=== PATIENT | female | born 1980 | race Caucasian/White ===

== ENCOUNTER → 2024-01-05 08:14 | Outpatient (CLI) | payer OTHER, MEDICAID, SELFPAY ==
--- NOTE | 2024-01-05 08:19 | DI.MG.S_ITS ---
BILATERAL DIGITAL SCREENING MAMMOGRAM 3D/2D WITH CAD: 01/05/2024 CLINICAL: Routine screening. Family history of breast cancer. Baseline exam. No prior exams were available for comparison. Both breasts are heterogeneously dense, which may obscure small masses (category c / 51-75% glandular tissue). Current study was also evaluated with a Computer Aided Detection (CAD) system. There is an asymmetry in the right breast axillary tail region seen on the mediolateral oblique view only. No other significant masses, calcifications, or other findings are seen in either breast. IMPRESSION: INCOMPLETE: NEEDS ADDITIONAL IMAGING EVALUATION Right breast asymmetry in the axillary tail. Finding may be an artifact. A diagnostic mammogram with possible ultrasound is recommended. Based on the Tyrer Cuzick model (a risk assessment model) the patient's lifetime risk is 19.6% and her 10 year risk is 5.8%. According to the ACR, ACS, and NCCN guidelines, an annual breast MRI exam along with mammogram is recommended if the patient's lifetime risk is 20% or greater. This exam was interpreted at Station ID: [id number]. NOTE: For mammograms, a report in lay terms will be sent to the patient. Approximately 15% of breast malignancies will not be visualized mammographically. In the management of a palpable breast mass, a negative mammogram must not discourage biopsy of a clinically suspicious lesion. Electronically Signed By: Mercedes Johnson M.D., Ph.D. eb/:01/05/2024 11:05:04 letter sent: Additional Imaging Needed ACR BI-RADS Category 0: Incomplete 3340F
[2024-01-05 10:41] LABS: Add Manual Diff / Slide Review NO; Basophils Absolute Auto 0 /uL (0-100); Basophils Percent Auto 0.3 % (0-2); Eosinophils Absolute Auto 300 /uL (0-450); Eosinophils Percent Auto 2.4 % (2-4); Hematocrit 39.7 % (36-46); Hemoglobin 13.2 g/dL (12.0-16.0); Lymphocytes Absolute Auto 2300 /uL (1100-4500); Lymphocytes Percent Auto 22.3 % (25-40); Mean Corpuscular HGB Conc 33.2 % (30-36); Mean Corpuscular Hemoglobin 26.9 PG (26-34); Mean Corpuscular Volume 81.1 fL (80-100); Monocytes Absolute Auto 400 /uL (0-900); Monocytes Percent Auto 4.3 % (3-14); Neutrophils Absolute Auto 7400 /uL (1500-7000); Neutrophils Percent Auto 70.7 % (50-75); Platelet Count 460 X10^3/uL (150-400); Red Blood Cell Count 4.89 X10^6/uL (4.0-5.2); Red Cell Distribution Width 16.5 % (11.6-14.8); White Blood Cell Count 10.5 X10^3/uL (4.5-11.0)
[2024-01-05 10:48] LABS: Hemoglobin A1C% w Est Avg Glu 8.3 % (4.0-6.0)
[2024-01-05 10:50] LABS: UR Morphine/Opiate cutoff 300 Negative (Negative); Ur Creatinine Normal (Normal); Ur Specific Gravity Normal (Normal); Urine Amphetamines Negative (Negative); Urine Barbiturates Negative (Negative); Urine Benzodiazepines Negative (Negative); Urine Cocaine Negative (Negative); Urine MDMA Negative (Negative); Urine Methadone Negative (Negative); Urine Methamphetamines Negative (Negative); Urine Oxycodone Negative (Negative); Urine Phencyclidine Negative (Negative); Urine Tetrahydrocannabinol Positive (Negative); Urine Tricyclic Antidepressant Negative (Negative); Urine pH Normal (Normal)
[2024-01-05 11:25] LABS: Alanine Aminotransferase 21 IU/L (<35); Albumin 3.8 g/dL (3.5-5.0); Albumin Globulin Ratio 1.2 (1.0-2.8); Alkaline Phosphatase 86 U/L (38-126); Aspartate Aminotransferase 20 IU/L (14-36); BUN Creatinine Ratio 13.2 (6-22); Bilirubin Total 0.5 mg/dL (0.2-1.3); Blood Urea Nitrogen 9 mg/dL (7-17); Calcium 9.1 mg/dL (8.4-10.2); Carbon Dioxide 21 mmol/L (22-32); Chloride 109 mmol/L (98-107); Cholesterol 197 mg/dL (140-199); Estimated Glomerular Filt Rate > 60 mL/min (>60); Globulin 3.3 g/dL (1.7-4.1); Glucose 283 mg/dL (70-100); HDL Cholesterol 36 mg/dL (40-60); HEMOLYSIS < 15 (0-50); LDL Cholesterol Calculated 114 mg/dL (<100); Potassium 4.5 mmol/L (3.4-5.1); Sodium 139 mmol/L (137-145); Total Protein 7.1 g/dL (6.3-8.2); Triglycerides 236 mg/dL (35-150)
[2024-01-05 11:49] LABS: TSH w/ Reflex to FT4 1.81 uIU/mL (0.47-4.68)
[2024-01-06 02:52] LABS: Hepatitis B Core AB w/Reflex Negative (Negative)
[2024-01-06 16:49] LABS: HIV 1 & 2 Ab/Ag 4th Gen Combo NEGATIVE (NEGATIVE); Hep C Virus Ab w/Reflex Quant NEGATIVE s/c (NEGATIVE)
== END ==
LOC: MAMMO 08:17
PROVIDERS: PCP Family Medicine; Referring Provider Family Medicine; Visit Provider Family Medicine
DX: Z12.31 Encounter for screening mammogram for malignant neoplasm of breast (principal); Z80.3 Family history of malignant neoplasm of breast; R92.333 Mammographic heterogeneous density, bilateral breasts; G43.909 Migraine, unspecified, not intractable, without status migrainosus; G40.909 Epilepsy, unspecified, not intractable, without status epilepticus; E66.01 Morbid (severe) obesity due to excess calories; Z68.43 Body mass index [BMI] 50.0-59.9, adult; Z96.89 Presence of other specified functional implants; Z13.220 Encounter for screening for lipoid disorders; Z13.1 Encounter for screening for diabetes mellitus; Z78.9 Other specified health status; Z76.89 Persons encountering health services in other specified circumstances
CPT/HCPCS: 77063; 77067; 80053; 80061; 80305; 83036; 84443; 85025; 86480; 86704; 86803; 87389

== ENCOUNTER → 2024-02-01 09:21 | Outpatient (CLI) | payer OTHER, MEDICAID, SELFPAY ==
--- NOTE | 2024-02-01 09:23 | DI.MG.S_ITS ---
UNILATERAL RIGHT DIGITAL DIAGNOSTIC MAMMOGRAM 3D/2D WITH ADDITIONAL VIEWS: 02/01/2024 CLINICAL: Additional evaluation requested from prior study. Comparison is made to exam dated: 01/05/2024 mammogram - [facility]. There are scattered areas of fibroglandular density in the right breast (category b / 25%-50% glandular tissue). There is an asymmetry in the right breast posterior depth superior region seen on the mediolateral oblique view only. This is less prominent and decreased in size. Patient reports prior skin inflammation in this area and taking a course of antibiotics since the prior screening exam. No other significant masses or calcifications are seen in the breast. IMPRESSION: BENIGN The asymmetry in the right breast most likely is a skin lesion and is benign. Recommend clinical follow up. There is no mammographic evidence of malignancy. Return to annual mammogram screening schedule is recommended. Based on the Tyrer Cuzick model (a risk assessment model) the patient's lifetime risk is 14.1% and her 10 year risk is 4.0%. According to the ACR, ACS, and NCCN guidelines, an annual breast MRI exam along with mammogram is recommended if the patient's lifetime risk is 20% or greater. This exam was interpreted at Station ID: [id number]. NOTE: For mammograms, a report in lay terms will be sent to the patient. Approximately 15% of breast malignancies will not be visualized mammographically. In the management of a palpable breast mass, a negative mammogram must not discourage biopsy of a clinically suspicious lesion. Electronically Signed By: Guillaume Kauffman M.D. ar/:02/01/2024 14:32:00 letter sent: Clinical Evaluation ACR BI-RADS Category 2: Benign Finding(s) 3342F
== END ==
PROVIDERS: PCP Family Medicine; Referring Provider Family Medicine; Visit Provider Family Medicine
DX: R92.8 Other abnormal and inconclusive findings on diagnostic imaging of breast (principal); N64.89 Other specified disorders of breast; R92.321 Mammographic fibroglandular density, right breast
CPT/HCPCS: 77065; G0279

== ENCOUNTER 2024-04-06 16:25 | Emergency (ER) | payer OTHER, MEDICAID, SELFPAY ==
[2024-04-06 16:35] VITALS: BP 175/91; PULSE 78; RESP 18; TEMP 37.2; O2SAT 100; BMI 50.7
--- NOTE | 2024-04-06 16:59 | DI.CT.S_ITS ---
PROCEDURE: CT HEAD/BRAIN WO CON INDICATIONS: Right-sided headache TECHNIQUE: Noncontrast 4.5 mm thick angled axial sections acquired from the foramen magnum to the vertex, with coronal and sagittal reformats. For radiation dose reduction, the following was used: automated exposure control, adjustment of mA and/or kV according to patient size. COMPARISON: None. FINDINGS: Image quality: Diagnostic. CSF spaces: Right frontal approach ventricular drainage catheter is seen. Basal cisterns are patent. No extra-axial fluid collections. Ventricles are normal in size and shape. Brain: No midline shift. No intracranial masses or hemorrhage. Soto-white matter interface is normal. Skull and face: Calvarium and visualized facial bones are intact, without suspicious lesions. Sinuses: Visualized sinuses and mastoids are clear. IMPRESSION: 1. No acute intracranial abnormality. 2. Right frontal approach ventricular drainage catheter is seen. Ventricles are normal in size. Approved by: Guillaume Kauffman M.D. on 04/06/2024 at 17:29
--- NOTE | 2024-04-06 17:00 | DI.RAD.S_ITS ---
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 COMPARISON: None. FINDINGS: Bones: No fractures. No suspicious bony lesions. Visualized sinuses appear clear. Soft tissues: No soft tissue calcifications. No suspicious soft tissue densities. Ventricular peritoneal shunt catheter is seen. No focal discontinuity is seen on this image. Neural stimulator device is seen in the left lower neck. IMPRESSION: Right ventriculoperitoneal shunt catheter is seen. No catheter discontinuity is seen. Approved by: Guillaume Kauffman M.D. on 04/06/2024 at 17:55
--- NOTE | 2024-04-06 17:00 | DI.RAD.S_ITS ---
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 COMPARISON: None. FINDINGS: Surgical changes and devices: Ventricular peritoneal shunt catheter is seen projecting over the right neck and right chest. Apparent looping is seen in the supraclavicular region although anterior-posterior depth is not known on this single image. No kinking or discontinuity is seen. Nerve stimulator device is seen projecting over the left lower neck. Lungs and pleura: Lungs are clear. No pleural effusions or pneumothorax. Mediastinum: Mediastinal contours appear normal. Heart size is normal. Bones and chest wall: No suspicious bony lesions. Overlying soft tissues appear unremarkable. IMPRESSION: Visualized portion of the ventricular peritoneal shunt catheter is intact without kinking or discontinuity. Apparent looping in the supraclavicular region may be related to projection and positioning. Approved by: Guillaume Kauffman M.D. on 04/06/2024 at 17:53
--- NOTE | 2024-04-06 17:00 | DI.RAD.S_ITS ---
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 COMPARISON: None. FINDINGS: Surgical changes and devices: Ventricular peritoneal shunt catheter is seen projecting over the abdomen and pelvis. No kinking or discontinuity is seen. Surgical clips are seen in the right upper quadrant. Bowel: Bowel gas pattern is normal. Moderate colonic stool. Soft tissues: No suspicious abdominal calcifications. Visualized solid organ contours appear normal in size. Bones: No suspicious bony lesions. IMPRESSION: Included portion of the ventriculoperitoneal shunt catheter is intact. Approved by: Guillaume Kauffman M.D. on 04/06/2024 at 17:51
[2024-04-06 17:13] LABS: Add Manual Diff / Slide Review NO; Basophils Absolute Auto 100 /uL (0-100); Basophils Percent Auto 1.2 % (0-2); Eosinophils Absolute Auto 200 /uL (0-450); Eosinophils Percent Auto 1.6 % (2-4); Hematocrit 42.3 % (36-46); Hemoglobin 14.3 g/dL (12.0-16.0); Lymphocytes Absolute Auto 2900 /uL (1100-4500); Lymphocytes Percent Auto 22.4 % (25-40); Mean Corpuscular HGB Conc 33.7 % (30-36); Mean Corpuscular Hemoglobin 27.5 PG (26-34); Mean Corpuscular Volume 81.7 fL (80-100); Monocytes Absolute Auto 600 /uL (0-900); Monocytes Percent Auto 4.4 % (3-14); Neutrophils Absolute Auto 9000 /uL (1500-7000); Neutrophils Percent Auto 70.4 % (50-75); Platelet Count 439 X10^3/uL (150-400); Red Blood Cell Count 5.18 X10^6/uL (4.0-5.2); Red Cell Distribution Width 14.9 % (11.6-14.8); White Blood Cell Count 12.8 X10^3/uL (4.5-11.0)
[2024-04-06] MEDS: KETOROLAC 30 MG/ML VIAL 15 MG IV (17:15)
[2024-04-06] MEDS: SODIUM CHLORIDE 0.9% 1,000 ML 1000 ML IV (17:15)
[2024-04-06] MEDS: ONDANSETRON 4 MG/2 ML INJ IV (17:15)
[2024-04-06 17:31] LABS: Alanine Aminotransferase 17 IU/L (<35); Albumin 4.3 g/dL (3.5-5.0); Albumin Globulin Ratio 1.1 (1.0-2.8); Alkaline Phosphatase 68 U/L (38-126); Aspartate Aminotransferase 18 IU/L (14-36); BUN Creatinine Ratio 8.1 (6-22); Bilirubin Total 0.5 mg/dL (0.2-1.3); Blood Urea Nitrogen 7 mg/dL (7-17); Calcium 9.3 mg/dL (8.4-10.2); Carbon Dioxide 22 mmol/L (22-32); Chloride 108 mmol/L (98-107); Estimated Glomerular Filt Rate > 60 mL/min (>60); Globulin 3.9 g/dL (1.7-4.1); Glucose 96 mg/dL (70-100); HEMOLYSIS < 15 (0-50); Potassium 3.8 mmol/L (3.4-5.1); Sodium 139 mmol/L (137-145); Total Protein 8.2 g/dL (6.3-8.2)
--- NOTE | 2024-04-06 17:39 | ED_ITS ---
HPI - Headache <Darien Caldwell MD - Last Filed: 04/14/24 08:00> General Chief Complaint: Headache Stated Complaint: RADAR SYSTEMS ENGINEER shunt, worsening headaches Time Seen by Provider: 04/06/24 16:53 Mode of arrival: Wheelchair History of Present Illness HPI Narrative: Patient moved here from [facility] this past spring time. Patient has history of epilepsy after 1 of her and is on Vimpat. Denies any recent seizures. However she does have history of pseudotumor cerebri. RADAR SYSTEMS ENGINEER shunt was placed 2016 in [facility] at [facility]. She states her headaches have been very well controlled until recently in the past 3 weeks has had constant right-sided headache and occipital headache. No nausea or vomiting but does have dizziness. Last time RADAR SYSTEMS ENGINEER shunt was checked in July 2023 before she moved here. She currently does not have a neurosurgeon following her. She states she usually gets Toradol for migraine headaches. This is her typical type of headache in character but does lasting longer. She does have migraine medication that was provided to her from [place] but it does not last as long and effective as it was before. Related Data Home Medications Medication Instructions Recorded Confirmed rizatriptan 10 mg tablet mg PO 12/24/23 04/06/24 clindamycin phosphate 1 % topical topical 04/06/24 04/06/24 solution clobetasol 0.05 % topical cream 1 applic topical BID 04/06/24 04/06/24 Previous Rx's Medication Instructions Recorded blood sugar diagnostic (OneTouch #300 ea 01/07/24 Verio test strips) blood-glucose meter (OneTouch #1 ea 01/07/24 Verio Flex Start kit) blood-glucose meter (OneTouch #1 ea 01/07/24 Verio Flex Start kit) duloxetine 60 mg capsule,delayed 60 mg PO QAM #90 caps 01/07/24 release lancets 30 gauge (OneTouch [place] #300 ea 01/07/24 Plus Lancet) blood sugar diagnostic (OneTouch #100 ea 01/27/24 Verio test strips) xruutkorjw-qleaqrlqdqboj-ejbnxivr 1 cap PO Q8H PRN pain #5 caps 01/27/24 50 mg-300 mg-40 mg capsule (Fioricet) tirzepatide 5 mg/0.5 mL 5 mg (0.5 mL) SUBCUT QWEEK 4 weeks 02/09/24 subcutaneous pen injector #2 mL duloxetine 30 mg capsule,delayed 30 mg PO DAILY #90 caps 02/24/24 release lacosamide 200 mg tablet 200 mg PO BID #60 tabs 02/24/24 ondansetron HCl 4 mg tablet 4 mg PO DAILY PRN nausea and 02/28/24 vomiting #30 tabs gabapentin 300 mg capsule 300 mg PO 3XD #90 caps 03/13/24 hydroxyzine HCl 50 mg tablet 50 mg PO 3XD #90 tabs 03/13/24 topiramate 50 mg tablet 50 mg PO BID #60 tabs 03/13/24 trazodone 50 mg tablet 50 mg PO BEDTIME PRN insomnia #60 03/23/24 tabs buspirone 30 mg tablet 30 mg PO BID #90 tabs 04/05/24 istirnkhha-onkzhsogqdwfj-gcbpvfcm 1 cap PO Q6H PRN pain #30 caps 04/06/24 50 mg-300 mg-40 mg capsule (Fioricet) ondansetron 4 mg disintegrating 4 mg PO Q6H PRN nausea and 04/06/24 tablet vomiting #30 tabs Allergies Allergy/AdvReac Type Severity Reaction Status Date / Time No Known Allergies Allergy Verified 04/06/24 15:51 Patient History <Darien Caldwell MD - Last Filed: 04/14/24 08:00> Social History Smoking Status: Current every day smoker Smoking Status: Current every day smoker tobacco type: cigarettes and vaping Substance Use Type: marijuana Exam <Darien Caldwell MD - Last Filed: 04/14/24 08:00> Initial Vital Signs Initial Vital Signs: Vital Signs Temperature 98.9 F 04/06/24 16:35 Pulse Rate 78 04/06/24 16:35 Respiratory Rate 18 04/06/24 16:35 Blood Pressure 175/91 H 04/06/24 16:35 Pulse Oximetry 100 04/06/24 16:35 Oxygen Delivery Method Room Air 04/06/24 16:35 <Bashir Gilman DO - Last Filed: 04/06/24 19:01> Initial Vital Signs Initial Vital Signs: Vital Signs Temperature 98.9 F 04/06/24 16:35 Pulse Rate 78 04/06/24 16:35 Respiratory Rate 18 04/06/24 16:35 Blood Pressure 175/91 H 04/06/24 16:35 Pulse Oximetry 100 04/06/24 16:35 Oxygen Delivery Method Room Air 04/06/24 16:35 Course <Darien Caldwell MD - Last Filed: 04/14/24 08:00> Orders Ordered: Discontinued Medications Acetaminophen/Butalbital/Caffeine (Butalb/Apap/Caffeine 50/325/40 Tablet) 1 each PO NOW ONE Stop: 04/06/24 18:27 Last Admin: 04/06/24 18:38 Dose: 1 each Documented By: JINA Sodium Chloride (Normal Saline 0.9%) 1,000 mls @ 1,000 mls/hr IV BOLUS ONE Stop: 04/06/24 17:58 Last Infusion: 04/06/24 18:27 Dose: Infused Documented By: Admin: 04/06/24 17:15 Dose: 1,000 mls/hr Documented By: JIAN Ketorolac Tromethamine (Ketorolac 30 Mg/Ml Vial) 15 mg IV NOW ONE Stop: 04/06/24 17:00 Last Admin: 04/06/24 17:15 Dose: 15 mg Documented By: JIAN Ondansetron HCl (Ondansetron 4 Mg/2 Ml Inj) 4 mg IV NOW ONE Stop: 04/06/24 17:00 Last Admin: 04/06/24 17:15 Dose: 4 mg Documented By: JIAN Vital Signs Vital signs: Vital Signs - 8 hr 04/06/24 16:35 04/06/24 18:41 Temperature 98.9 F Pulse Rate 78 76 Respiratory Rate 18 18 Blood Pressure 175/91 H 154/84 H Pulse Oximetry 100 99 Oxygen Delivery Method Room Air Room Air <Bashir Gilman DO - Last Filed: 04/06/24 19:01> Orders Ordered: Discontinued Medications Acetaminophen/Butalbital/Caffeine (Butalb/Apap/Caffeine 50/325/40 Tablet) 1 each PO NOW ONE Stop: 04/06/24 18:27 Last Admin: 04/06/24 18:38 Dose: 1 each Documented By: JIAN Sodium Chloride (Normal Saline 0.9%) 1,000 mls @ 1,000 mls/hr IV BOLUS ONE Stop: 04/06/24 17:58 Last Infusion: 04/06/24 18:27 Dose: Infused Documented By: Admin: 04/06/24 17:15 Dose: 1,000 mls/hr Documented By: JIAN Ketorolac Tromethamine (Ketorolac 30 Mg/Ml Vial) 15 mg IV NOW ONE Stop: 04/06/24 17:00 Last Admin: 04/06/24 17:15 Dose: 15 mg Documented By: JIAN Ondansetron HCl (Ondansetron 4 Mg/2 Ml Inj) 4 mg IV NOW ONE Stop: 04/06/24 17:00 Last Admin: 04/06/24 17:15 Dose: 4 mg Documented By: JIAN Vital Signs Vital signs: Vital Signs - 8 hr 04/06/24 16:35 04/06/24 18:41 Temperature 98.9 F Pulse Rate 78 76 Respiratory Rate 18 18 Blood Pressure 175/91 H 154/84 H Pulse Oximetry 100 99 Oxygen Delivery Method Room Air Room Air MDM - Headache <Darien Caldwell MD - Last Filed: 04/14/24 08:00> Lab Data 04/06/24 17:02 04/06/24 17:02 Labs: Lab Results 04/06/24 Range/Units 17:02 WBC 12.8 H (4.5-11.0) X10^3/uL RBC 5.18 (4.0-5.2) X10^6/uL Hgb 14.3 (12.0-16.0) g/dL Hct 42.3 (36-46) % MCV 81.7 (80-100) fL MCH 27.5 (26-34) PG MCHC 33.7 (30-36) % RDW 14.9 H (11.6-14.8) % Plt Count 439 H (150-400) X10^3/uL Neut % (Auto) 70.4 (50-75) % Lymph % (Auto) 22.4 L (25-40) % [place] % (Auto) 4.4 (3-14) % Eos % (Auto) 1.6 L (2-4) % Baso % (Auto) 1.2 (0-2) % Neut # (Auto) 9000 H (0839-6690) /uL Lymph # (Auto) 2900 (0097-8466) /uL [place] # (Auto) 600 (0-900) /uL Eos # (Auto) 200 (0-450) /uL Baso # (Auto) 100 (0-100) /uL Sodium 139 (137-145) mmol/L Potassium 3.8 (3.4-5.1) mmol/L Chloride 108 H (98-107) mmol/L Carbon Dioxide 22 (22-32) mmol/L BUN 7 (7-17) mg/dL Creatinine 0.86 (0.52-1.04) mg/dL Estimated GFR > 60 (>60) mL/min BUN/Creatinine Ratio 8.1 (6-22) Glucose 96 (70-100) mg/dL Calcium 9.3 (8.4-10.2) mg/dL Total Bilirubin 0.5 (0.2-1.3) mg/dL AST 18 (14-36) IU/L ALT 17 (<35) IU/L Alkaline Phosphatase 68 (38-126) U/L Total Protein 8.2 (6.3-8.2) g/dL Albumin 4.3 (3.5-5.0) g/dL Globulin 3.9 (1.7-4.1) g/dL Albumin/Globulin Ratio 1.1 (1.0-2.8) Imaging Data CT scan - head: Radiologist's Impression: [place] [address] CT Scan Report Signed Patient: Sammie Ruano MR#: [id number] : 1980 Acct:[id number] Age/Sex: 43 / F Date of Service: 04/06/24 Loc: ED Accession Number: [id number] Procedure: CT head/brain wo con Ordering Provider: Darien Caldwell MD PROCEDURE: CT HEAD/BRAIN WO CON INDICATIONS: Right-sided headache TECHNIQUE: Noncontrast 4.5 mm thick angled axial sections acquired from the foramen magnum to the vertex, with coronal and sagittal reformats. For radiation dose reduction, the following was used: automated exposure control, adjustment of mA and/or kV according to patient size. COMPARISON: None. FINDINGS: Image quality: Diagnostic. CSF spaces: Right frontal approach ventricular drainage catheter is seen. Basal cisterns are patent. No extra-axial fluid collections. Ventricles are normal in size and shape. Brain: No midline shift. No intracranial masses or hemorrhage. Soto-white matter interface is normal. Skull and face: Calvarium and visualized facial bones are intact, without suspicious lesions. Sinuses: Visualized sinuses and mastoids are clear. IMPRESSION: 1. No acute intracranial abnormality. 2. Right frontal approach ventricular drainage catheter is seen. Ventricles are normal in size. Approved by: Guillaume Kauffman M.D. on 04/06/2024 at 17:29 [facility] Narrative Medical decision making narrative: Patient moved here from [facility] this past spring time. Patient has history of epilepsy after 1 of her and is on Vimpat. Denies any recent seizures. However she does have history of pseudotumor cerebri. RADAR SYSTEMS ENGINEER shunt was placed 2016 in [facility] at [facility]. She states her headaches have been very well controlled until recently in the past 3 weeks has had constant right-sided headache and occipital headache. No nausea or vomiting but does have dizziness. Last time RADAR SYSTEMS ENGINEER shunt was checked in July 2023 before she moved here. She currently does not have a neurosurgeon following her. She states she usually gets Toradol for migraine headaches. This is her typical type of headache in character but does lasting longer. She does have migraine medication that was provided to her from [place] but it does not last as long and effective as it was before. After history and exam CBC CMP Toradol Zofran normal saline CT head RADAR SYSTEMS ENGINEER shunt series [facility] Medical records reviewed: No recent visit for this complaint Differential considered: Includes but not limited to hydrocephalus RADAR SYSTEMS ENGINEER shunt malfunction migraine headache Lab Test results independently reviewed as above. Pertinent findings: WBC 12.8 nonspecific. No fever. Sodium 139 potassium 3.8 glucose 96 Independently reviewed EKG none indicated Imaging studies independently reviewed: CT head no acute finding Consultations: Treatments: Toradol Zofran normal saline Re-evaluations: 5:45 p.m.. Patient states feeling better with Toradol. Headache is improving. She does have referral by her primary care, Romy, for Neurosurgery but patient has not called to make the appointment. Discussion: 6:00 p.m. Paulette: Sign out to Dr Gilman, RADAR SYSTEMS ENGINEER shunt series pending results. Reassess headache control Diagnosis: Migraine headache <Bashir Gilman, - Last Filed: 04/06/24 19:01> Lab Data Labs: Lab Results 04/06/24 Range/Units 17:02 WBC 12.8 H (4.5-11.0) X10^3/uL RBC 5.18 (4.0-5.2) X10^6/uL Hgb 14.3 (12.0-16.0) g/dL Hct 42.3 (36-46) % MCV 81.7 (80-100) fL MCH 27.5 (26-34) PG MCHC 33.7 (30-36) % RDW 14.9 H (11.6-14.8) % Plt Count 439 H (150-400) X10^3/uL Neut % (Auto) 70.4 (50-75) % Lymph % (Auto) 22.4 L (25-40) % [place] % (Auto) 4.4 (3-14) % Eos % (Auto) 1.6 L (2-4) % Baso % (Auto) 1.2 (0-2) % Neut # (Auto) 9000 H (5641-8050) /uL Lymph # (Auto) 2900 (6551-7150) /uL [place] # (Auto) 600 (0-900) /uL Eos # (Auto) 200 (0-450) /uL Baso # (Auto) 100 (0-100) /uL Sodium 139 (137-145) mmol/L Potassium 3.8 (3.4-5.1) mmol/L Chloride 108 H (98-107) mmol/L Carbon Dioxide 22 (22-32) mmol/L BUN 7 (7-17) mg/dL Creatinine 0.86 (0.52-1.04) mg/dL Estimated GFR > 60 (>60) mL/min BUN/Creatinine Ratio 8.1 (6-22) Glucose 96 (70-100) mg/dL Calcium 9.3 (8.4-10.2) mg/dL Total Bilirubin 0.5 (0.2-1.3) mg/dL AST 18 (14-36) IU/L ALT 17 (<35) IU/L Alkaline Phosphatase 68 (38-126) U/L Total Protein 8.2 (6.3-8.2) g/dL Albumin 4.3 (3.5-5.0) g/dL Globulin 3.9 (1.7-4.1) g/dL Albumin/Globulin Ratio 1.1 (1.0-2.8) MDM Narrative Medical decision making narrative: Patient moved here from [facility] this past spring time. Patient has history of epilepsy after 1 of her and is on Vimpat. Denies any recent seizures. However she does have history of pseudotumor cerebri. RADAR SYSTEMS ENGINEER shunt was placed 2016 in [facility] at [facility]. She states her headaches have been very well controlled until recently in the past 3 weeks has had constant right-sided headache and occipital headache. No nausea or vomiting but does have dizziness. Last time RADAR SYSTEMS ENGINEER shunt was checked in July 2023 before she moved here. She currently does not have a neurosurgeon following her. She states she usually gets Toradol for migraine headaches. This is her typical type of headache in character but does lasting longer. She does have migraine medication that was provided to her from [place] but it does not last as long and effective as it was before. After history and exam CBC CMP Toradol Zofran normal saline CT head RADAR SYSTEMS ENGINEER shunt series [facility] Medical records reviewed: No recent visit for this complaint Differential considered: Includes but not limited to hydrocephalus RADAR SYSTEMS ENGINEER shunt malfunction migraine headache Lab Test results independently reviewed as above. Pertinent findings: WBC 12.8 nonspecific. No fever. Sodium 139 potassium 3.8 glucose 96 Independently reviewed EKG none indicated Imaging studies independently reviewed: CT head no acute finding Consultations: Treatments: Toradol Zofran normal saline Re-evaluations: 5:45 p.m.. Patient states feeling better with Toradol. Headache is improving. She does have referral by her primary care, Romy, for Neurosurgery but patient has not called to make the appointment. Discussion: 6:00 p.m. Paulette: Sign out to Dr Gilman, RADAR SYSTEMS ENGINEER shunt series pending results. Reassess headache control Diagnosis: Migraine headache Dr gilman: Received turned over. Review patient's history and physical exam. Head CT is unremarkable. No signs of intracranial hemorrhage. Low suspicion for meningitis. Low suspicion for CVA/TIA. Low suspicion for intracranial hemorrhage. Patient states Fioricet has helped her in the past so I will give her a prescription for this. She also thinks that the dissolvable Zofran helps her nausea better than the oral Zofran so she was given a prescription for this as well. Recommended that she contact her neurosurgeon and also her primary care doctor for follow-up. Discussed return precautions. She expressed understanding and agreement. Discharge Plan Departure Patient Disposition: Home Clinical Impression: Headache Instructions: DI for Headache Activity Restrictions/Additional Instructions: Recommend that you contact your Neurosurgery office tomorrow and also your primary care doctor's office tomorrow for a follow-up. Take the medications as needed and as directed. Return to the emergency department for new symptoms. Prescriptions: New oxplfxjuum-wypulltddduje-naax [Fioricet] 50-300-40 mg capsule 1 cap PO Q6H PRN (Reason: pain) Qty: 30 0RF ondansetron 4 mg tablet,disintegrating 4 mg PO Q6H PRN (Reason: nausea and vomiting) Qty: 30 0RF No Action clindamycin phosphate 1 % solution topical clobetasol 0.05 % cream 1 applic topical BID duloxetine 60 mg capsule,delayed release(DR/EC) 60 mg PO QAM Qty: 90 0RF Rx Instructions: Take 60 mg (1 cap) QAM then 30 mg cap QPM (second script); total daily dose= 90 mg (DME) blood-glucose meter [OneTouch Verio Flex Start] Kit See Rx Instructions .Route Qty: 1 0RF Rx Instructions: Use to test blood sugar three times a day (DME) lancets [OneTouch Delica Plus Lancet] 30 gauge misc See Rx Instructions .Route Qty: 300 3RF Rx Instructions: USE TO TEST BLOOD GLUCOSE LEVELS TID (DME) OneTouch Verio test strips Strip See Rx Instructions .Route Qty: 300 4RF Rx Instructions: USE TO TEST BLOOD GLUCOSE LEVELS TID (DME) blood-glucose meter [OneTouch Verio Flex Start] Kit See Rx Instructions .Route Qty: 1 0RF Rx Instructions: USE TO TEST BLOOD GLUCOSE LEVELS TID Mounjaro 5 mg/0.5 mL pen injector 5 mg SUBCUT QWEEK 28 Days Qty: 2 1RF duloxetine 30 mg capsule,delayed release(DR/EC) 30 mg PO DAILY Qty: 90 0RF Rx Instructions: take 60 mg (second script) QAM and 30 mg (1 cap) QPM; total daily dose= 90 mg lacosamide 200 mg tablet 200 mg PO BID Qty: 60 3RF ondansetron HCl 4 mg tablet 4 mg PO DAILY PRN (Reason: nausea and vomiting) Qty: 30 0RF gabapentin 300 mg capsule 300 mg PO 3XD Qty: 90 3RF hydroxyzine HCl 50 mg tablet 50 mg PO 3XD Qty: 90 3RF topiramate 50 mg tablet 50 mg PO BID Qty: 60 3RF buspirone 30 mg tablet 30 mg PO BID Qty: 90 0RF rizatriptan 10 mg tablet PO trazodone 50 mg tablet 50 mg PO BEDTIME PRN (Reason: insomnia) Qty: 60 0RF Rx Instructions: take 1-2 tablets nightly PRN cjhmelchwc-cciblldwsmqiq-oudl [Fioricet] 50-300-40 mg capsule 1 cap PO Q8H PRN (Reason: pain) Qty: 5 0RF (DME) OneTouch Verio test strips Strip See Rx Instructions .Route Qty: 100 3RF Rx Instructions: Use to test blood sugar three times a day Referrals: Briana Stanton DO [Primary Care Provider] - Stand Alone Forms: Patient Portal/API
[2024-04-06] MEDS: BUTALB/APAP/CAFFEINE 50/325/40 TABLET 1 EACH PO (18:38)
[2024-04-06 18:41] VITALS: BP 154/84; PULSE 76; RESP 18; O2SAT 99
== END 2024-04-06 18:45 | disposition home or self-care (01) ==
PROVIDERS: Emergency Medicine; Emergency Provider Emergency Medicine; PCP Family Medicine
DX: R51.9 Headache, unspecified (principal); Z98.2 Presence of cerebrospinal fluid drainage device
CPT/HCPCS: 36415; 70250; 70450; 71045; 74018; 80053; 85025; 96361; 96374; 96375; 99284; J1885; J2405

== ENCOUNTER 2024-05-30 13:14 | Emergency (ER) | payer OTHER, MEDICAID, SELFPAY ==
[2024-05-30] VITALS (7 sets, daily range): BP systolic 112–145; BP diastolic 65–87; PULSE 64–85; RESP 14–19; TEMP 36.8–37.3; O2SAT 96–99; BMI 45.1
--- NOTE | 2024-05-30 13:16 | ED_ITS ---
HPI - Nausea/Vomiting/Diarrhea General Chief complaint: Abdominal Pain Stated complaint: vomiting Time Seen by Provider: 05/30/24 13:16 History of Present Illness HPI Narrative: Patient with a history of epilepsy after 1 on Vimpat but no other subsequent seizures, pseudotumor cerebri with TIME BUYER shunt placed in 2016 in [facility] at the [facility], [place], diabetes, fibromyalgia, marijuana use comes into the ED from home for evaluation of abdominal pain, nausea vomiting diarrhea. States it is persistent states that she that she was some symptoms that she was started on Mounjaro in December. States today it was just, states that she is lot of burping. States that she did take a laxative and is now having diarrhea. She states that she did follow up with neurologist history of the patient, that is still in the process of care at [facility]. She currently is not complaining of any headache visual disturbances chest pain shortness breath fever chills or any other GI/ symptoms Related Data Home Medications Medication Instructions Recorded Confirmed rizatriptan 10 mg tablet mg PO 12/24/23 05/02/24 clindamycin phosphate 1 % topical topical 04/06/24 05/02/24 solution clobetasol 0.05 % topical cream 1 applic topical BID 04/06/24 05/02/24 Previous Rx's Medication Instructions Recorded blood sugar diagnostic (OneTouch #300 ea 01/07/24 Verio test strips) blood-glucose meter (OneTouch #1 ea 01/07/24 Verio Flex Start kit) blood-glucose meter (OneTouch #1 ea 01/07/24 Verio Flex Start kit) lancets 30 gauge (OneTouch Delica #300 ea 01/07/24 Plus Lancet) blood sugar diagnostic (OneTouch #100 ea 01/27/24 Verio test strips) pefbioimda-iyjhbmzkohyac-ddwgrbbv 1 cap PO Q6H PRN pain #30 caps 04/06/24 50 mg-300 mg-40 mg capsule (Fioricet) ondansetron 4 mg disintegrating 4 mg PO Q6H PRN nausea and 04/06/24 tablet vomiting #30 tabs jchqmzelzi-gjzkfplwncvfx-mbsmlded 1 cap PO Q8H PRN pain #5 caps 05/02/24 50 mg-300 mg-40 mg capsule (Fioricet) duloxetine 30 mg capsule,delayed 30 mg PO DAILY #90 caps 05/02/24 release duloxetine 60 mg capsule,delayed 60 mg PO QAM #90 caps 05/02/24 release gabapentin 300 mg capsule 300 mg PO 3XD #90 caps 05/02/24 hydroxyzine HCl 50 mg tablet 50 mg PO 3XD #90 tabs 05/02/24 tirzepatide 5 mg/0.5 mL 5 mg (0.5 mL) SUBCUT QWEEK 4 weeks 05/02/24 subcutaneous pen injector #2 mL topiramate 100 mg tablet 100 mg PO BEDTIME #30 tabs 05/02/24 topiramate 50 mg tablet 50 mg PO DAILY #30 tabs 05/02/24 trazodone 50 mg tablet 50 mg PO BEDTIME PRN insomnia #60 05/02/24 tabs lacosamide 200 mg tablet 200 mg PO BID #60 tabs 05/10/24 buspirone 30 mg tablet 30 mg PO BID #90 tabs 05/11/24 Allergies Allergy/AdvReac Type Severity Reaction Status Date / Time No Known Allergies Allergy Verified 05/30/24 13:25 Review of Systems Review of Systems Narrative: General: Denies fever, chills, weight loss HEENT: Denies headache, eye drainage, eye irritation, head trauma, sore throat, voice change Cardiovascular: Denies any chest pain, palpitations, shortness of breath, tachycardia Respiratory: Denies any shortness of breath, cough, wheeze, stridor GI/: Positive abdominal pain, nausea, vomiting, diarrhea, denies bright red blood per rectum, melanotic stools, urinary frequency, urinary retention, dysuria, hematuria MSK: Denies any joint pain, muscle pains, swelling Skin: Denies any rashes, lesions, discoloration Neuro: Denies any headache, lightheadedness, dizziness, fainting, weakness Psych: Denies SI/HI Patient History Social History Smoking Status: Current every day smoker Smoking Status: Current every day smoker tobacco type: cigarettes and vaping Substance Use Type: marijuana Exam Narrative Exam Narrative: General: Cooperative, comfortable, well-developed, not in acute distress HEENT: Normocephalic, atraumatic, PERRLA, normal sclera, eyelids normal, Neck: Active full range of motion, atraumatic Chest: Normal to inspection, negative crepitus, no overlying erythema ecchymosis Respiratory: Normal respiratory effort, not in acute respiratory distress, clear to auscultation bilaterally negative cough, wheeze, tachypnea, rhonchi, rales Cardiology: Regular rate rhythm negative gallop, murmur, rubs GI/: Normal to inspection, soft, nonrigid, no tenderness to palpation, exam deferred MSK: Full range of active range of motion of all 4 extremities, atraumatic Skin: No rashes lesions noted Neuro: Alert awake oriented x3, moves all 4 extremities spontaneously, cranial nerves intact, able to answer all questions appropriately follows commands appropriately Psych: Cooperative, negative suicidal or homicidal ideations Initial Vital Signs Initial Vital Signs: Vital Signs Temperature 98.3 F 05/30/24 13:15 Pulse Rate 84 05/30/24 13:15 Respiratory Rate 14 05/30/24 13:15 Blood Pressure 139/79 05/30/24 13:15 Pulse Oximetry 97 05/30/24 13:15 Oxygen Delivery Method Room Air 05/30/24 13:15 Course Orders Ordered: ED Orders 05/30/24 13:25 CT abdomen pelvis w con Stat 05/30/24 13:28 Complete Blood Count AUTO DIFF Stat Comprehensive Metabolic Panel Stat Lipase Stat MAG [Magnesium] Stat Discontinued Medications Diphenhydramine HCl (Diphenhydramine 50 Mg/Ml Vial) 25 mg IV NOW ONE Stop: 05/30/24 13:25 Last Admin: 05/30/24 13:29 Dose: 25 mg Documented By: Metoclopramide HCl (Metoclopramide 10 Mg/2 Ml Inj) 10 mg IV NOW ONE Stop: 05/30/24 13:25 Last Admin: 05/30/24 13:29 Dose: 10 mg Documented By: Metoclopramide HCl (Metoclopramide 10 Mg/2 Ml Inj) 10 mg IV NOW ONE Stop: 05/30/24 14:54 Last Admin: 05/30/24 15:43 Dose: Not Given Documented By: Pantoprazole Sodium (Pantoprazole 40 Mg Vial) 40 mg IV NOW ONE Stop: 05/30/24 13:25 Last Admin: 05/30/24 13:30 Dose: 40 mg Documented By: Vital Signs Vital signs: Vital Signs - 8 hr 05/30/24 13:15 05/30/24 13:26 05/30/24 13:26 Temperature 98.3 F Pulse Rate 84 85 75 Respiratory Rate 14 18 19 Blood Pressure 139/79 132/85 145/78 H Pulse Oximetry 97 99 97 Oxygen Delivery Method Room Air Room Air Room Air 05/30/24 13:26 05/30/24 14:59 Temperature Pulse Rate 65 85 Respiratory Rate 17 16 Blood Pressure 118/78 114/65 Pulse Oximetry 99 97 Oxygen Delivery Method Room Air Room Air MDM - Nausea/Vomiting/Diarrhea Differential Diagnosis Differential diagnosis: Likely gastroenteritis, dehydration and other (Diverticulitis, cholecystitis, electrolyte abnormality, urinary tract infection) Lab Data 05/30/24 13:28 05/30/24 13:28 Labs: Lab Results 05/30/24 Range/Units 13:28 WBC 18.3 H (4.5-11.0) X10^3/uL RBC 5.39 H (4.0-5.2) X10^6/uL Hgb 14.6 (12.0-16.0) g/dL Hct 44.0 (36-46) % MCV 81.6 (80-100) fL MCH 27.1 (26-34) PG MCHC 33.2 (30-36) % RDW 15.7 H (11.6-14.8) % Plt Count 508 H (150-400) X10^3/uL Neut % (Auto) 84.3 H (50-75) % Lymph % (Auto) 10.5 L (25-40) % Finney % (Auto) 3.9 (3-14) % Eos % (Auto) 0.8 L (2-4) % Baso % (Auto) 0.5 (0-2) % Neut # (Auto) 10737 H (2926-3653) /uL Lymph # (Auto) 1900 (7655-9605) /uL Finney # (Auto) 700 (0-900) /uL Eos # (Auto) 100 (0-450) /uL Baso # (Auto) 100 (0-100) /uL Sodium 137 (137-145) mmol/L Potassium 4.4 (3.4-5.1) mmol/L Chloride 109 H (98-107) mmol/L Carbon Dioxide 20 L (22-32) mmol/L BUN 7 (7-17) mg/dL Creatinine 0.74 (0.52-1.04) mg/dL Estimated GFR > 60 (>60) mL/min BUN/Creatinine Ratio 9.5 (6-22) Glucose 129 H (70-100) mg/dL Calcium 9.1 (8.4-10.2) mg/dL Magnesium 2.1 (1.6-2.3) mg/dL Total Bilirubin 0.7 (0.2-1.3) mg/dL AST 19 (14-36) IU/L ALT 18 (<35) IU/L Alkaline Phosphatase 73 (38-126) U/L Total Protein 8.1 (6.3-8.2) g/dL Albumin 4.2 (3.5-5.0) g/dL Globulin 3.9 (1.7-4.1) g/dL Albumin/Globulin Ratio 1.1 (1.0-2.8) Lipase 54 (23-300) U/L Urine Dip Bedside Urine Glucose Negative Bedside Urine Bilirubin - Negative Bedside Urine Ketone - Negative Urine Specific [place] 1.015 Bedside Urine Occult Blood - Negative Bedside Urine pH 6 Bedside Urine Protein - Negative Bedside Urine Urobilinogen - Negative Bedside Urine Nitrite - Negative Bedside Urine Leukocytes - Negative Esterase Imaging Data CT scan - abdomen/pelvis: Radiologist's Impression: [place] [address] CT Scan Report Signed Patient: Sammie Ruano MR#: [id number] : 1980 Acct:[id number] Age/Sex: 43 / F Date of Service: 05/30/24 Loc: ED Accession Number: [id number] Procedure: CT abdomen pelvis w con Ordering Provider: Rodo Da Silva D.O. PROCEDURE: CT ABDOMEN PELVIS W CON INDICATIONS: diffuse abd pain TECHNIQUE: After the administration of intravenous contrast, axial sections acquired from the lung bases to the pubic symphysis. Coronal and sagittal reformats were performed. For radiation dose reduction, the following was used: automated exposure control, adjustment of mA and/or kV according to patient size. COMPARISON: None. FINDINGS: Image quality: Diagnostic. Lower Chest: No significant findings. ABDOMEN: Liver: No solid mass. Liver measures 24.8 cm with steatosis. Gallbladder: Removed. Biliary ducts: No biliary dilation. Pancreas: No ductal dilation. Spleen: Size is within normal limits. Adrenal Glands: 1.7 cm right adrenal nodule. Kidneys and Ureters: No hydronephrosis. No solid mass. No complex renal cystic lesion which requires follow up. Stomach and Bowel: Normal colonic caliber, without significant wall thickening. Peritoneum: No abnormal intraperitoneal fluid. Minimal dependent pelvic fluid. Ventral Wall: No significant ventral hernia. Abdominal Nodes: No retroperitoneal or mesenteric adenopathy by size criteria. Vessels: Aorta and inferior vena cava are normal in size. PELVIS: Pelvic Organs: Uterus is not visualized. Bladder: No bladder wall thickening, accounting for underdistention. Pelvic Nodes: No enlarged lymph nodes. Miscellaneous: No inguinal hernias are seen. Bones: No aggressive osseous abnormality. IMPRESSION: No acute intra-abdominal or pelvic process. Hepatomegaly with steatosis. MDM Narrative Medical decision making narrative: Patient is a 43-year-old female with a history of diabetes, seizures on Vimpat, pseudotumor cerebri with TIME BUYER shunt, comes into the ED from home for evaluation of abdominal pain nausea vomiting diarrhea ongoing persistent for the past several weeks but worsening over the past 24 hours. She states that symptoms have been intermittent and since she was started him on Onofre for her diabetes. She also states that she has been having a lot of excessive gas and burping thought she was constipated took a laxative yesterday and now has been having persistent diarrhea. She denies any melanotic stools and bright red blood per rectum. 1625: Patient was re-evaluated informed her of her negative CT scan results, informed her that she did have a slight elevation in her WBCs, however more likely secondary to acute stress in the setting of nausea vomiting diarrhea. I instructed her follow up with her primary care doctor and to follow up with GI in outpatient setting. There is no indication at this point for antibiotics. She was given strict return precautions and feels safe going home with outpatient follow up. Discharge Plan Departure Patient Disposition: Home Clinical Impression: Gastroenteritis Activity Restrictions/Additional Instructions: Please follow up with primary care and GI in outpatient setting Please read the discharge instructions sheet carefully and bring all papers to all doctor follow-up visits, as it may contain information that your doctor may want to see. Disease processes change and evolve, if your symptoms worsen or if you develop any new symptoms that are concerning to you please return for evaluation. Your evaluation today does not show any evidence of any life- threatening/serious illnesses requiring admission to the hospital or surgery. Please follow-up with your doctor for re-evaluation in approximately 1 day. Seek immediate medical attention for any worrisome symptoms. Prescriptions: No Action clindamycin phosphate 1 % solution topical clobetasol 0.05 % cream 1 applic topical BID (DME) blood-glucose meter [OneTouch Verio Flex Start] Kit See Rx Instructions .Route Qty: 1 0RF Rx Instructions: Use to test blood sugar three times a day (DME) lancets [OneTouch Delica Plus Lancet] 30 gauge misc See Rx Instructions .Route Qty: 300 3RF Rx Instructions: USE TO TEST BLOOD GLUCOSE LEVELS TID (DME) OneTouch Verio test strips Strip See Rx Instructions .Route Qty: 300 4RF Rx Instructions: USE TO TEST BLOOD GLUCOSE LEVELS TID (DME) blood-glucose meter [OneTouch Verio Flex Start] Kit See Rx Instructions .Route Qty: 1 0RF Rx Instructions: USE TO TEST BLOOD GLUCOSE LEVELS TID lacosamide 200 mg tablet 200 mg PO BID Qty: 60 5RF buspirone 30 mg tablet 30 mg PO BID Qty: 90 0RF rizatriptan 10 mg tablet PO topiramate 100 mg tablet 100 mg PO BEDTIME Qty: 30 3RF topiramate 50 mg tablet 50 mg PO DAILY Qty: 30 3RF tirzepatide 5 mg/0.5 mL pen injector 5 mg SUBCUT QWEEK 28 Days Qty: 2 1RF lrxmnpdrvs-gcdspjipogqit-cisg [Fioricet] 50-300-40 mg capsule 1 cap PO Q8H PRN (Reason: pain) Qty: 5 0RF duloxetine 60 mg capsule,delayed release(DR/EC) 60 mg PO QAM Qty: 90 0RF Rx Instructions: Take 60 mg (1 cap) QAM then 30 mg cap QPM (second script); total daily dose= 90 mg duloxetine 30 mg capsule,delayed release(DR/EC) 30 mg PO DAILY Qty: 90 0RF Rx Instructions: take 60 mg (second script) QAM and 30 mg (1 cap) QPM; total daily dose= 90 mg gabapentin 300 mg capsule 300 mg PO 3XD Qty: 90 3RF hydroxyzine HCl 50 mg tablet 50 mg PO 3XD Qty: 90 3RF trazodone 50 mg tablet 50 mg PO BEDTIME PRN (Reason: insomnia) Qty: 60 0RF Rx Instructions: take 1-2 tablets nightly PRN (DME) OneTouch Verio test strips Strip See Rx Instructions .Route Qty: 100 3RF Rx Instructions: Use to test blood sugar three times a day khsvecrxbz-lnxhtclppeddd-kpcj [Fioricet] 50-300-40 mg capsule 1 cap PO Q6H PRN (Reason: pain) Qty: 30 0RF ondansetron 4 mg tablet,disintegrating 4 mg PO Q6H PRN (Reason: nausea and vomiting) Qty: 30 0RF Referrals: Jeff Noe MD [Non-Staff] - Briana Stanton DO [Primary Care Provider] - Stand Alone Forms: Patient Portal/API
--- NOTE | 2024-05-30 13:25 | DI.CT.S_ITS ---
PROCEDURE: CT ABDOMEN PELVIS W CON INDICATIONS: diffuse abd pain TECHNIQUE: After the administration of intravenous contrast, axial sections acquired from the lung bases to the pubic symphysis. Coronal and sagittal reformats were performed. For radiation dose reduction, the following was used: automated exposure control, adjustment of mA and/or kV according to patient size. COMPARISON: None. FINDINGS: Image quality: Diagnostic. Lower Chest: No significant findings. ABDOMEN: Liver: No solid mass. Liver measures 24.8 cm with steatosis. Gallbladder: Removed. Biliary ducts: No biliary dilation. Pancreas: No ductal dilation. Spleen: Size is within normal limits. Adrenal Glands: 1.7 cm right adrenal nodule. Kidneys and Ureters: No hydronephrosis. No solid mass. No complex renal cystic lesion which requires follow up. Stomach and Bowel: Normal colonic caliber, without significant wall thickening. Peritoneum: No abnormal intraperitoneal fluid. Minimal dependent pelvic fluid. Ventral Wall: No significant ventral hernia. Abdominal Nodes: No retroperitoneal or mesenteric adenopathy by size criteria. Vessels: Aorta and inferior vena cava are normal in size. PELVIS: Pelvic Organs: Uterus is not visualized. Bladder: No bladder wall thickening, accounting for underdistention. Pelvic Nodes: No enlarged lymph nodes. Miscellaneous: No inguinal hernias are seen. Bones: No aggressive osseous abnormality. IMPRESSION: No acute intra-abdominal or pelvic process. Hepatomegaly with steatosis. Dictated by: Aurora Myrick M.D. on 05/30/2024 at 15:31 Approved by: Aurora Myrick M.D. on 05/30/2024 at 15:35
[2024-05-30] MEDS: METOCLOPRAMIDE 10 MG/2 ML INJ IV (13:29)
[2024-05-30] MEDS: diphenhydrAMINE 50 MG/ML VIAL 25 MG IV (13:29)
[2024-05-30] MEDS: PANTOPRAZOLE 40 MG VIAL IV (13:30)
[2024-05-30 13:35] LABS: Add Manual Diff / Slide Review NO; Basophils Absolute Auto 100 /uL (0-100); Basophils Percent Auto 0.5 % (0-2); Eosinophils Absolute Auto 100 /uL (0-450); Eosinophils Percent Auto 0.8 % (2-4); Hemoglobin 14.6 g/dL (12.0-16.0); Lymphocytes Absolute Auto 1900 /uL (1100-4500); Lymphocytes Percent Auto 10.5 % (25-40); Mean Corpuscular HGB Conc 33.2 % (30-36); Mean Corpuscular Hemoglobin 27.1 PG (26-34); Mean Corpuscular Volume 81.6 fL (80-100); Monocytes Absolute Auto 700 /uL (0-900); Monocytes Percent Auto 3.9 % (3-14); Neutrophils Absolute Auto 15400 /uL (1500-7000); Neutrophils Percent Auto 84.3 % (50-75); Platelet Count 508 X10^3/uL (150-400); Red Blood Cell Count 5.39 X10^6/uL (4.0-5.2); Red Cell Distribution Width 15.7 % (11.6-14.8); White Blood Cell Count 18.3 X10^3/uL (4.5-11.0)
[2024-05-30 13:50] LABS: Alanine Aminotransferase 18 IU/L (<35); Albumin 4.2 g/dL (3.5-5.0); Albumin Globulin Ratio 1.1 (1.0-2.8); Alkaline Phosphatase 73 U/L (38-126); Aspartate Aminotransferase 19 IU/L (14-36); BUN Creatinine Ratio 9.5 (6-22); Bilirubin Total 0.7 mg/dL (0.2-1.3); Blood Urea Nitrogen 7 mg/dL (7-17); Calcium 9.1 mg/dL (8.4-10.2); Carbon Dioxide 20 mmol/L (22-32); Chloride 109 mmol/L (98-107); Estimated Glomerular Filt Rate > 60 mL/min (>60); Globulin 3.9 g/dL (1.7-4.1); Glucose 129 mg/dL (70-100); HEMOLYSIS 36 (0-50); Lipase 54 U/L (23-300); Magnesium 2.1 mg/dL (1.6-2.3); Potassium 4.4 mmol/L (3.4-5.1); Sodium 137 mmol/L (137-145); Total Protein 8.1 g/dL (6.3-8.2)
--- NOTE | 2024-05-30 14:50 | PC.NURSE ---
Pt reports that the medicine given earlier was working great until now. Nausea is coming back. notified.
== END 2024-05-30 16:55 | disposition home or self-care (01) ==
PROVIDERS: Emergency Provider Student in an Organized Health Care Education/Training Program; PCP Family Medicine
DX: K52.9 Noninfective gastroenteritis and colitis, unspecified (principal); R11.2 Nausea with vomiting, unspecified; Z79.899 Other long term (current) drug therapy
CPT/HCPCS: 36415; 74177; 80053; 81003; 83690; 83735; 85025; 96374; 96375; 99284; J1200; J2470; J2765; Q9967

== ENCOUNTER → 2024-06-02 07:58 | Outpatient (CLI) | payer OTHER, MEDICAID, SELFPAY | PROVIDERS: PCP Family Medicine; Visit Provider Nurse Practitioner Family | DX: T14.8XXA Other injury of unspecified body region, initial encounter (principal) | CPT/HCPCS: 87070; 87077; 87147; 87186; 87205 ==